=== PATIENT | female | born 1950 | race Caucasian/White ===

== ENCOUNTER 2017-09-07 10:15 | Emergency (ER) | payer BC, MEDICARE ==
[2017-09-07] MEDS ORDERED: NAPROXEN 250 MG TAB PO STA (10:45)
[2017-09-07] MEDS ORDERED: HYDROcodone/APAP 5-325MG 1 EACH TAB PO STA (10:45)
--- NOTE | 2017-09-07 10:47 | ED ---
Back Pain HPI - General Chief Complaint: Back Pain/Injury Stated Complaint: Possible bladder infection Time Seen by Provider: 09/07/17 10:30 Source: patient Limitations: no limitations - History of Present Illness Initial Comments: Patient complains of back pain and possible urinary tract infection. She states her symptoms have gotten worse for couple days. She denies any chest pain or shortness of breath. She has no pain or swelling in the arms or legs. She has no lightheadedness or dizziness. She has no fevers or chills. She has no weakness or trouble walking. She has taken no medication for the symptoms. - Related Data Home Medications Medication Instructions Recorded Confirmed Flecainide Acetate [Flecainide 100 mg PO BID 09/07/17 09/07/17 Acetate] HYDROcodone/APAP 7.5-325MG [[place] 1 tab PO BID PRN 09/07/17 09/07/17 7.5-325] Levothyroxine Sodium 125 mcg PO DAILY 09/07/17 09/07/17 Losartan [Cozaar] 25 mg PO BID 09/07/17 09/07/17 Mirabegron [Myrbetriq] 25 mg PO DAILY 09/07/17 09/07/17 Rivaroxaban [Xarelto] 20 mg PO W/SUPPER 09/07/17 09/07/17 Ziprasidone [Geodon] 80 mg PO BID 09/07/17 09/07/17 Previous Rx's Medication Instructions Recorded Nitrofurantoin Monohyd/M-Cryst 100 mg PO Q12HR #14 cap 09/07/17 [Macrobid] Allergies Allergy/AdvReac Type Severity Reaction Status Date / Time Sulfa (Sulfonamide Allergy Rash/Hives Verified 09/07/17 11:21 Antibiotics) Review of Systems ROS Statement: Those systems with pertinent positive or pertinent negative responses have been documented in the HPI. ROS Other: All systems not noted in ROS Statement are negative. Past Medical History Past Medical History: Atrial Fibrillation, GERD/Reflux, Hypertension History of Any Multi-Drug Resistant Organisms: None Reported Past Surgical History: No Surgical Hx Reported, Bariatric Surgery, Hysterectomy , Orthopedic Surgery Additional Past Surgical History / Comment(s): colon resection, left knee Past Psychological History: Anxiety, Bipolar, Depression Smoking Status: Never smoker Past Alcohol Use History: None Reported Past Drug Use History: Marijuana General Exam Limitations: no limitations General appearance: alert, in no apparent distress Head exam: Present: atraumatic, normocephalic, normal inspection Eye exam: Present: normal appearance, PERRL, EOMI. Absent: scleral icterus, conjunctival injection, periorbital swelling ENT exam: Present: normal exam, mucous membranes moist Neck exam: Present: normal inspection. Absent: tenderness, meningismus, lymphadenopathy Respiratory exam: Present: normal lung sounds bilaterally. Absent: respiratory distress, wheezes, rales, rhonchi, stridor Cardiovascular Exam: Present: regular rate, normal rhythm, normal heart sounds. Absent: systolic murmur, diastolic murmur, rubs, gallop, clicks GI/Abdominal exam: Present: soft, normal bowel sounds. Absent: distended, tenderness, guarding, rebound, rigid Extremities exam: Present: normal inspection, full ROM, normal capillary refill. Absent: tenderness, pedal edema, joint swelling, calf tenderness Back exam: Present: normal inspection Neurological exam: Present: alert, oriented X3, CN II-XII intact Psychiatric exam: Present: normal affect, normal mood Skin exam: Present: warm, dry, intact, normal color. Absent: rash Course Vital Signs 09/07/17 10:20 Temperature 97.3 F L Pulse Rate 93 Respiratory 17 Rate Blood Pressure 143/88 O2 Sat by Pulse 95 Oximetry Medical Decision Making - Medical Decision Making Patient was given pain medication. She is feeling better. Two-view chest x- rays negative. Urinalysis is unremarkable, but she states she has symptoms of UTI, therefore I will send her with an antibiotic for this. She has no tenderness on abdominal exam. She has no pain or swelling in the calves. She has no palpitations. I can find no evidence of any acute emergency condition. She is stable for discharge and outpatient follow-up. - Lab Data Lab Results 09/07/17 Range/Units 11:05 Urine Color Yellow Urine Appearance Clear (Clear) Urine pH 5.5 (5.0-8.0) Ur Specific [place] 1.014 (1.001-1.035) Urine Protein Negative (Negative) Urine Glucose (UA) Negative (Negative) Urine Ketones Negative (Negative) Urine Blood Negative (Negative) Urine Nitrite Negative (Negative) Urine Bilirubin Negative (Negative) Urine Urobilinogen <2.0 (<2.0) mg/dL Ur Leukocyte Esterase Negative (Negative) Disposition Clinical Impression: Mechanical back pain, UTI (urinary tract infection) Disposition: HOME SELF-CARE Condition: Good Instructions: Acute Low Back Pain (ED) Prescriptions: Nitrofurantoin Monohyd/M-Cryst [Macrobid] 100 mg PO Q12HR #14 cap Is patient prescribed a controlled substance at d/c from ED?: No Referrals: Nonstaff,Physician [REFERRING] - 1-2 days Williams Foy MD [STAFF PHYSICIAN] - 1-2 days Osiris Cook MD [STAFF PHYSICIAN] - 1-2 days Time of Disposition: 12:20
[2017-09-07 11:11] LABS: Appearance,Urine Clear (Clear); Bilirubin,Urine Negative (Negative); Blood,Urine Negative (Negative); Color,Urine Yellow; Glucose,Urine (UA) Negative (Negative); Ketones,Urine Negative (Negative); Leukocyte Esterase,Urine Negative (Negative); Nitrite,Urine Negative (Negative); PH, Urine 5.5 (5.0-8.0); Protein,Urine Negative (Negative); Specific Gravity,Urine 1.014 (1.001-1.035); Urobilinogen,Urine <2.0 mg/dL (<2.0)
--- NOTE | 2017-09-07 11:42 | XR ---
EXAMINATION TYPE: XR chest 2V DATE OF EXAM: 09/07/2017 COMPARISON: NONE TECHNIQUE: PA and lateral views submitted. HISTORY: Pain FINDINGS: The lungs are clear and there is no pneumothorax, pleural effusion, or focal pneumonia. Bilateral c alcified nodules compatible with granulomas. Atherosclerotic change aorta and degenerative change of the spine. Surgical clips in the abdomen. IMPRESSION: 1. No acute process.
[2017-09-07 12:32] VITALS: BP 159/98; PULSE 60; RESP 18; TEMP 98.7
== END 2017-09-07 12:30 | disposition home or self-care (01) ==
LOC: EC 10:15
DX: N39.0 Urinary tract infection, site not specified (principal); M54.9 Dorsalgia, unspecified; I48.91 Unspecified atrial fibrillation; I10 Essential (primary) hypertension; F31.9 Bipolar disorder, unspecified; Z79.01 Long term (current) use of anticoagulants; Z79.899 Other long term (current) drug therapy; Z88.2 Allergy status to sulfonamides
CPT/HCPCS: 71046; 81003; 99284